=== PATIENT | male | born 1945 | race Two or more races ===

== ENCOUNTER 2017-12-18 02:37 | Inpatient (IN) | END 2017-12-24 20:26 | disposition home health service (06) | DRG 853 ==

== ENCOUNTER 2018-02-18 10:18 | Inpatient (IN) | END 2018-02-19 18:00 | DRG 291 ==

== ENCOUNTER 2018-03-13 18:18 | Inpatient (IN) | END 2018-03-14 20:05 | disposition home or self-care (01) | DRG 690 ==